=== PATIENT | male | born 2000 | race Two or more races ===

== ENCOUNTER 2022-01-09 11:34 | Day surgery (SDC) | payer OTHER ==
[2022-01-06 15:16] VITALS: BMI 28.2
[2022-01-09] MEDS ORDERED: LIDOCAINE HCL/PF 2% SDV 5ML VIAL ONE (12:33)
[2022-01-09] MEDS ORDERED: ALBUTEROL SO4 0.083% IH SOL 2.5 MG/3 ML VIAL.NEB. NEB ONE (13:22)
[2022-01-09 15:21] VITALS: PULSE 88; TEMP 97.9
[2022-01-09 15:55] VITALS: BP 142/79
== END 2022-01-09 14:35 | disposition home or self-care (01) ==
LOC: FASU-ENDO 11:34 → FASU 11:34
PROVIDERS: ATTEND Internal Medicine Gastroenterology
PROC: 0DB68ZX Excision of Stomach, Via Natural or Artificial Opening Endoscopic, Diagnostic (ICD-10-PCS; 2022-01-09)
PROC: 0DB48ZX Excision of Esophagogastric Junction, Via Natural or Artificial Opening Endoscopic, Diagnostic (ICD-10-PCS; 2022-01-09)
PROC: 0DB98ZX Excision of Duodenum, Via Natural or Artificial Opening Endoscopic, Diagnostic (ICD-10-PCS; principal; 2022-01-09 13:13)
DX: K29.50 Unspecified chronic gastritis without bleeding (principal); K20.90 Esophagitis, unspecified without bleeding; R10.13 Epigastric pain
CPT/HCPCS: 88305-TC; 88342-TC

== ENCOUNTER 2022-04-07 11:06 | Day surgery (SDC) | payer OTHER ==
[2022-04-02 13:24] VITALS: BMI 28.0
[2022-04-07 12:16] VITALS: RESP 16
[2022-04-07 13:26] VITALS: TEMP 98.7
[2022-04-07 13:31] VITALS: BP 106/62; PULSE 64
== END 2022-04-07 13:55 | disposition home or self-care (01) ==
LOC: FASU-ENDO 11:06
PROVIDERS: ATTEND Internal Medicine Gastroenterology
PROC: 0DJD8ZZ Inspection of Lower Intestinal Tract, Via Natural or Artificial Opening Endoscopic (ICD-10-PCS; principal; 2022-04-07 12:52)
DX: K64.1 Second degree hemorrhoids (principal); K64.8 Other hemorrhoids; K92.1 Melena

== ENCOUNTER 2023-04-13 10:51 | Emergency (ER) | payer OTHER ==
[2023-04-13 11:25] VITALS: RESP 18; TEMP 98; BMI 28.0
[2023-04-13] MEDS ORDERED: SODIUM CHLORIDE 1,000 ML IV STA (12:19)
[2023-04-13] MEDS ORDERED: FAMOTIDINE 20 MG/50 ML IVPB 20 MG/50 ML MG IVPB ONE ×2 (12:23→12:37)
[2023-04-13] MEDS ORDERED: ACETAMINOPHEN 1000 MG/100 ML BAG IVPB ONE (12:23)
[2023-04-13] MEDS ORDERED: ONDANSETRON 4 MG/2 ML VIAL IVPUSH ONE (12:24)
[2023-04-13] MEDS ORDERED: ACETAMINOPHEN INJECTION 100 ML IVPB ONE (12:37)
[2023-04-13] MEDS ORDERED: ONDANSETRON 4 MG/2 ML VIAL ONE (12:37)
[2023-04-13 12:56] LABS: BASO % 0.5 % (0-2.0); EOS % 4.5 % (0-4.5); HEMATOCRIT 45.9 % (35.4-49); HEMOGLOBIN 15.2 GM/dL (11.7-16.9); LYMPH % 23.4 % (8-40); MCH 30.9 pg (25.7-33.7); MEAN CELL VOLUME 93.5 fl (80-96); MEAN PLT VOLUME 8.2 fl (7.5-11.1); NEUT % 66.6 % (42.8-82.8); PLATELET COUNT 254 10^3/uL (134-434); RBC 4.91 M/mm3 (4.00-5.60); RDW 13.1 % (11.9-15.9); WHITE BLOOD COUNT 9.2 K/mm3 (4.0-10.0)
[2023-04-13 13:11] LABS: POTASSIUM 4.5 mmol/L (3.5-5.1)
[2023-04-13 13:20] LABS: BILIRUBIN,TOTAL 0.7 mg/dL (0.2-1); TOT PROT 7.6 g/dl (6.4-8.2)
[2023-04-13 13:21] LABS: BLOOD UREA NITROGEN 9.5 mg/dL (7-18)
[2023-04-13 13:22] LABS: ALBUMIN 4.1 g/dl (3.4-5.0)
[2023-04-13 13:25] LABS: CREATININE 0.9 mg/dL (0.55-1.3)
[2023-04-13 13:35] LABS: PH,URINE 5.5 (5.0-8.0); URINE APPEARANCE CLEAR; URINE BILIRUBIN NEGATIVE (NEGATIVE); URINE COLOR YELLOW; URINE GLUCOSE (UA) NEGATIVE (NEGATIVE); URINE KETONE NEGATIVE (NEGATIVE); URINE LEUK ESTERASE NEGATIVE (NEGATIVE); URINE NITRITE NEGATIVE (NEGATIVE); URINE PROTEIN NEGATIVE (NEGATIVE); URINE UROBILINOGEN 0.2 mg/dL (0.2-1.0)
[2023-04-13 15:02] VITALS: BP 122/77; PULSE 97
== END 2023-04-13 15:10 | disposition home or self-care (01) ==
LOC: JER 10:51
PROC: 3E033GC Introduction of Other Therapeutic Substance into Peripheral Vein, Percutaneous Approach (ICD-10-PCS; principal; 2023-04-13)
PROC: 3E033NZ Introduction of Analgesics, Hypnotics, Sedatives into Peripheral Vein, Percutaneous Approach (ICD-10-PCS; 2023-04-13)
PROC: 3E033GC Introduction of Other Therapeutic Substance into Peripheral Vein, Percutaneous Approach (ICD-10-PCS; 2023-04-13)
PROC: 3E0337Z Introduction of Electrolytic and Water Balance Substance into Peripheral Vein, Percutaneous Approach (ICD-10-PCS; 2023-04-13)
DX: R10.33 Periumbilical pain (principal)
CPT/HCPCS: 36415; 74177-TC; 80053; 81003; 83690; 85025; 87086; 99285-25; Q9967